=== PATIENT | female | born 1990 | race Caucasian/White ===

== ENCOUNTER 2020-11-29 13:57 | Emergency (ER) | payer BC ==
[2020-11-29] MEDS ORDERED: Lidocaine 2% Jelly 5 ML Tube ONE (14:27)
--- NOTE | 2020-11-29 14:43 | EDM.PDOC ---
ED HPI GENERAL MEDICAL PROBLEM - General Chief Complaint: Upper Extremity Injury/Pain Stated Complaint: RING STUCK ON LEFT RING FINGER SINCE THIS AM Time Seen by Provider: 11/29/20 14:15 Source of Information: Reports: Patient History Limitations: Reports: No Limitations - History of Present Illness INITIAL COMMENTS - FREE TEXT/NARRATIVE: 29 YO WF PRESENTS TO ER COMPLAINING OF RING STUCK ON LEFT RING FINGER SINCE THIS AM. PT REPORTS SHE IS CURRENTLY AND HER HANDS HAVE STARTED TO SWELL. TODAY PT TRIED TO REMOVE RING BUT WAS UNABLE PROMPTING ER EVALUATION. Onset: Today Location: Reports: Upper Extremity, Left Quality: Reports: Ache, Throbbing Severity: Moderate Improves with: Reports: None Worsens with: Reports: None Associated Symptoms: Reports: No Other Symptoms Review of Systems - Review of Systems Review Of Systems: See Below Constitutional: Reports: No Symptoms Eyes: Reports: No Symptoms Ears: Reports: No Symptoms Nose: Reports: No Symptoms Mouth/Throat: Reports: No Symptoms Respiratory: Reports: No Symptoms Cardiovascular: Reports: No Symptoms GI/Abdominal: Reports: No Symptoms Genitourinary: Reports: No Symptoms Musculoskeletal: Reports: Hand Pain, Joint Swelling Skin: Reports: No Symptoms Neurological: Reports: No Symptoms Psychiatric: Reports: No Symptoms ED EXAM, GENERAL - Physical Exam Exam: See Below Exam Limited By: No Limitations General Appearance: Alert, WD/WN, No Apparent Distress Head: Atraumatic, Normocephalic Neck: Normal Inspection, Supple, Non-Tender, Full Range of Motion Respiratory/Chest: No Respiratory Distress, Lungs Clear, Normal Breath Sounds, No Accessory Muscle Use, Chest Non-Tender Cardiovascular: Normal Peripheral Pulses, Regular Rate, Rhythm, No Edema, No Gallop, No JVD, No Murmur, No Rub GI/Abdominal: Normal Bowel Sounds, Soft, Non-Tender, No Organomegaly, No Distention, No Abnormal Bruit, No Mass Back Exam: Normal Inspection, Full Range of Motion, NT Neurological: Alert, Oriented, CN II-XII Intact, Normal Cognition, Normal Gait, No Motor/Sensory Deficits ED TRAUMA EXTREMITY PROCEDURES - Additional/Other Procedure(s) Other (Free Text) Procedure(s): PROCEDURE: RING REMOVAL USED RING CUTTER TO REMOVE RING WITHOUT COMPLICATIONS. Course - Orders/Labs/Meds Meds: Medications Discontinued Medications Generic Name Dose Route Start Last Admin Trade Name Freq PRN Reason Stop Dose Admin Lidocaine HCl Confirm 11/29/20 14:27 Lidocaine 2% Jelly 5 Ml Tube Administered 11/29/20 14:28 Dose 5 ml .ROUTE .STK-MED ONE Departure - Departure Time of Disposition: 14:45 Disposition: Home, Self-Care 01 Condition: Good Clinical Impression: Left hand pain - Discharge Information Referrals: Tracey Lan MD [Primary Care Provider] - Forms: ED Department Discharge Additional Instructions: 1. DISCHARGE HOME 2. ICE TO HAND 3. RETURN TO ER FOR WORSENING SYMPTOMS - Assessment/Plan Assessment:: 1. RING REMOVAL FROM LEFT INDEX FINGER Plan: 1. DISCHARGE HOME 2. ICE TO HAND 3. RETURN TO ER FOR WORSENING SYMPTOMS
== END 2020-11-29 14:50 | disposition home or self-care (01) ==
LOC: KA.ED 13:57
DX: O9A.219 Injury, poisoning and certain other consequences of external causes complicating pregnancy, unspecified trimester (principal); S60.445A External constriction of left ring finger, initial encounter; W49.04XA Ring or other jewelry causing external constriction, initial encounter
CPT/HCPCS: 99283